=== PATIENT | female | born 1960 | race Caucasian/White ===

== ENCOUNTER 2017-12-01 10:11 | Emergency (ER) | payer OTHER ==
[~2017-12-01] VITALS: Ht 165.1 cm; Wt 95.2 kg
[2017-12-01 10:24] VITALS: BP 136/67; PULSE 83; RESP 18; TEMP 98; O2SAT 96
--- NOTE | 2017-12-01 11:20 | PD ---
HPI Chief Complaint: Musculoskeletal Complaint Time Seen by Provider: 10:59 Travel History International Travel<30 days: No Contact w/Intl Traveler<30days: No Traveled to known affect area: No History of Present Illness HPI 57-year-old female that presents to the ED for evaluation of right knee injury. Per patient this happened on Thursday. Per patient she was taking her dog when her dog went one way and her knee went the other way. She twisted her knee and she heard a pop. Ever since she's been having pain. Per patient the first he does was more significant and it's actually gradually improved but she continues to have discomfort which is what concerned her. She has a history of breast cancer and she takes medications for her bones. She is concerned that she may have fracture. She's been able to ambulate. Denies any other medical issues. Per patient the pain is 6 out of 10. She has not taken anything for this. No urinary or bowel movement issues. Per patient she try to see an orthopedic doctor but she couldn't get in until the end of December. No other medical issues. No numbness, tilling, weakness. PFSH Past Medical History ?: Not Social History Tobacco Use: No Allergies-Medications (Allergen,Severity, Reaction): Coded Allergies: beeswax (Verified Adverse Reaction, Intermediate, RASH, 12/01/17) Uncoded Allergies: SAND (Adverse Reaction, Intermediate, SKIN IRRITATION, 12/01/17) SURGICAL TAPE (Adverse Reaction, Intermediate, SKIN IRRITATION, 12/01/17) Review of Systems Except as stated in HPI: all other systems reviewed are Neg Physical Exam Narrative GENERAL: SKIN: Warm and dry. HEAD: Atraumatic. Normocephalic. EYES: Pupils equal and round. No scleral icterus. No injection or drainage. ENT: No nasal bleeding or discharge. Mucous membranes pink and moist. Tongue is midline. No uvula deviation. NECK: Trachea midline. No JVD. CARDIOVASCULAR: Regular rate and rhythm. No murmurs, S3, S4. RESPIRATORY: No accessory muscle use. Clear to auscultation. Breath sounds equal bilaterally. GASTROINTESTINAL: Abdomen soft, non-tender, nondistended. Hepatic and splenic margins not palpable. MUSCULOSKELETAL: Extremities without clubbing, cyanosis, or edema. No obvious deformities. Full range of motion of the upper and lower extremities bilaterally. 2+ pulses bilaterally. Patient has no obvious ligamental injury on the right knee. Anterior and posterior drawer test negative. Valgus and varus test negative. Patient does have pain on the medial aspect of the knee with pressure on the foot. Minor swelling noted. No calf tenderness. Pain more reproducible weightbearing. NEUROLOGICAL: Awake and alert. No obvious cranial nerve deficits. Motor grossly within normal limits. Five out of 5 muscle strength in the arms and legs. Normal speech. PSYCHIATRIC: Appropriate mood and affect; insight and judgment normal. Data Data Last Documented VS Vital Signs Date Time Temp Pulse Resp B/P (MAP) Pulse Ox O2 Delivery O2 Flow Rate FiO2 12/01/17 10:24 98.0 83 18 136/67 (90) 96 Orders Orders Knee, Complete (4vws) (12/01/17 ) [facility] Medical Decision Making Medical Screen Exam Complete: Yes Emergency Medical Condition: Yes Medical Record Reviewed: Yes Interpretation(s) right knee xray negative for acute disease Differential Diagnosis Meniscal injury versus internal derangement versus sprain versus fracture Narrative Course 57-year-old female that presents to the ED for evaluation of right knee pain. Patient was properly examined and was found to have signs and symptoms consistent appears to be sprain versus meniscal injury. Imaging was ordered. Imaging was negative for acute disease. Patient was reassured. Patient was given prescription for diclofenac sodium For pain to use as needed. Given an davida wrap to use for comfort. Told to follow with orthopedic doctor symptoms do not improve. See ED worsening symptoms. Follow with PCP. Diagnosis Primary Impression: Knee internal derangement Qualified Codes: M23.91 - Unspecified internal derangement of right knee Patient Instructions: General Instructions Additional Instructions: Take medications as prescribed. Follow-up with PCP. See ED for any worsening symptoms. Apply ice or heat as needed for pain Med/Other Pt SpecificInfo: Prescription(s) given Disposition: 01 DISCHARGE HOME Condition: Stable Andry Murray Dec 01, 2017 11:20
[2017-12-01] MEDS ORDERED: DICL75TA PO (11:22)
--- NOTE | 2017-12-01 11:39 | RADRPT ---
EXAM DATE/TIME: 12/01/2017 11:23 [facility] COMPARISON: No previous studies available for comparison. INDICATIONS : Right knee pain after twisting it last week. MEDICAL HISTORY : Carcinoma, breast. Chemotherapy. Radiation therapy. SURGICAL HISTORY : None. ENCOUNTER: Initial ACUITY: 1 week PAIN SCORE: 6/10 LOCATION: Right knee FINDINGS: Four view examination of the right knee demonstrates no evidence of fracture or dislocation. Mild ost eoarthritis. No joint effusion. The suprapatellar soft tissues have a normal configuration. CONCLUSION: Mild osteoarthritis without fracture. Jimmy Triplett MD on December 01, 2017 at 11:38 Board Certified Radiologist. This report was verified electronically.
[2017-12-01] MEDS ORDERED: ANAS1TAB PO (11:41)
== END 2017-12-01 12:16 | disposition home or self-care (01) ==
LOC: PHED 10:11 → PHEFT 12:16
DX: M23.91 Unspecified internal derangement of right knee (principal); Z85.3 Personal history of malignant neoplasm of breast
CPT/HCPCS: 73564; 99283